=== PATIENT | male | born 1985 | race Caucasian/White ===

== ENCOUNTER 2021-02-12 09:56 | Emergency (ER) | payer OTHER, SELFPAY ==
--- NOTE | ~2021-02-12 | XR_ITS ---
EXAMINATION: XR_CERV2-3V_CR DATE: 02/12/2021 11:36 INDICATION: Chronic neck pain. TECHNIQUE: 4 views of cervical spine were obtained. COMPARISON: None. FINDINGS: Bone alignment is normal. Vertebral body heights are normal. There is mildly decreased disc height at C5-C6 and C6-C7. The facet joints are unremarkable. There is mild central canal stenosis a t C5-C6. No prevertebral soft tissue swelling. IMPRESSION: 1. Mild cervical spondylosis. Reviewed, dictated and finalized at location A.
[2021-02-12 10:03] VITALS: BP 117/78; PULSE 71; RESP 18; TEMP 36.2; O2SAT 100
[2021-02-12 10:30] VITALS: BP 109/75; PULSE 70; RESP 18; TEMP 36.7; O2SAT 100
--- NOTE | 2021-02-12 10:46 | ECG_ITS ---
Measurements Intervals [place] Rate: 64 P: 77 [place]: 136 QRS: 54 QRSD: 82 T: 60 QT: 369 QTc: 382 Interpretive Statements SINUS RHYTHM INCOMPLETE RIGHT BUNDLE BRANCH BLOCK BASELINE ARTIFACT- V3 BORDERLINE ECG Electronically Signed On 02-12-2021 14:32:47 CDT by Tray Urias D.O.
--- NOTE | 2021-02-12 11:23 | PC.NURSE ---
Pt refusing IV, made aware.
--- NOTE | 2021-02-12 11:24 | ED.GENADULT ---
HPI - General Adult General Chief complaint: Neck Pain/Injury Stated complaint: neck pain Time Seen by Provider: 02/12/21 10:54 History of Present Illness HPI narrative: Patient is a 35-year-old male who presents ER with neck pain. Reports he has been having neck pain for 4 years since he injured it while lifting 150 pound item while at work. Reports 4 years ago he felt a crack in his neck. Since then he has been having intermittent discomfort. Feels like he gets spasms in his upper back and his neck. He will then get some edema in his hands and feet and occasional burning down his legs. Reports this usually goes away with anti-inflammatories. He felt like it was worse last night so he came in to be seen. He was seen by his PCP 1 week ago who ordered outpatient x-rays and plans on ordering an outpatient MRI. He has not received the x-ray yet. He has been taking ibuprofen 400 mg every 8 hours without relief of pain. No saddle anesthesia or difficulty with urination/defecation. He is able to ambulate and maintain strength just feels very sensitive over his skin diffusely. No recent trauma. Denies fevers or chills or sweats. No new rash. Related Data Home Medications Medication Instructions Recorded Confirmed levothyroxine 50 mcg 02/12/21 Allergies Allergy/AdvReac Type Severity Reaction Status Date / Time No Known Allergies Allergy Mild Unverified 02/12/21 10:53 Review of Systems Review of Systems: All systems reviewed & are unremarkable except as noted in HPI and below Constitutional: Constitutional: Denies chills, Denies fever(s) and Denies weakness Musculoskeletal: Musculoskeletal: Reports back pain, Reports myalgias, Denies arthralgias, Denies joint swelling and Reports muscle cramps Comments: Extremity edema hands and feet. Neurologic: Denies headache(s), Denies focal weakness and Denies numbness Comments: Paresthesias of the thighs. [facility] Past Medical History Medical History (Updated 02/12/21 @ 12:09 by Deshaun Weiss MD) Kidney stones Surgical History Surgical History (Updated 02/12/21 @ 11:28 by Deshaun Weiss MD) No history of previous surgery Social History Social History (Updated 02/12/21 @ 11:28 by Deshaun Weiss MD) Tobacco type: e-cigarettes/vaping Gender identity (if verbalized by the patient): Male Exam Narrative: Exam Narrative: GENERAL: Well-appearing, well-nourished, and in no acute distress. HEAD: Normocephalic, atraumatic. ENT: Nares clear, no rhinorrhea or epistaxis. Mucous membranes moist. NECK: Supple. Paraspinal muscular tenderness in the C5-T2 region bilaterally. Mild midline discomfort. No swelling.Moves heal left and right but will not look up. CHEST: Clear to auscultation. No respiratory distress. HEART: Regular rate and rhythm. Normal peripheral pulses. EXTREMITIES: Normal range of motion. Able to ambulate and move arms w/o issue. SKIN: Warm, dry, no rash. NEURO: Alert and oriented x3. Sensation intact in the extemities (soft touch). Reports increased sensitivity to soft touch in lower extremities so sharp touch not preformed. Course Reevaluation(s) Reevaluation #1: Patient refusing IV. Will give medications IM and PO. Date: 02/12/21 Time: 11:24 Reevaluation #2: Patient and significant other frustrated that they are not receiving an MRI through the ER. Discussed that there is not seem to be an indication for emergency MRI and that it is not typically offered through our hospital. Cauda equina is not suspected nor is spinal epidural abscess given unremarkable lab work and lack of infectious symptoms. Patient seems to have significant chronicity with waxing waning symptoms related to his neck discomfort. Discussed I do feel patient can safely obtain outpatient MRI of the cervical spine through his primary care doctor who is been planning on obtaining one for him now that there is been an x-ray performed. I have educated on the results of the x-ray
[2021-02-12 11:27] LABS: Basophils Percent Auto 0.6 % (0.2-1.2); Eosinophils Absolute Auto 0.2 K/mm3 (0-0.3); Eosinophils Percent Auto 2.9 % (0-4.4); Immature Granulocyte Absolute 0.02 K/mm3 (0.00-0.031); Immature Granulocyte Percent A 0.3 % (0-0.5); Lymphocytes Absolute Auto 2.55 K/mm3 (0.9-3.2); Lymphocytes Percent Auto 40.7 % (18.3-44.2); Mean Corpuscular HGB Conc 35.7 g/dl (32-36); Mean Corpuscular Hemoglobin 32.6 pg (26-34); Mean Corpuscular Volume 91.3 fl (80-100); Mean Platelet Volume 9.3 fl (7.4-10.4); Monocytes Absolute Auto 0.6 K/mm3 (0.1-0.6); Monocytes Percent Auto 9.4 % (2.6-8.5); Neutrophils Absolute Auto 2.9 K/mm3 (1.3-6.7); Neutrophils Percent Auto 46.1 % (45.5-73.1); Platelet Count Result 379 k/mm3 (150-375); Red Cell Distribution Width 13.1 % (11.5-14.5); White Blood Count 6.3 K/mm3 (4.5-10.0)
[2021-02-12 11:39] LABS: Anion Gap 5 mmol/L (8-16); Blood Urea Nitrogen 14 mg/dL (9-20); CRP < 0.5 mg/dL (<1.0); Carbon Dioxide 27 mmol/L (22-30); Chloride 108 mmol/L (98-107); Estimated CRCL calculation 89 ml/min; Estimated Glomerular Filt Rate > 60; Glucose 94 mg/dL (75-110); Potassium 4.2 mmol/L (3.4-5.0); Sodium 140 mmol/L (137-145)
--- NOTE | 2021-02-12 11:40 | PC.NURSE ---
Pt refusing all pain medications.
[2021-02-12 12:02] LABS: Erythrocyte Sedimentation Rate 15 mm/hr (0-20)
== END 2021-02-12 12:25 | disposition home or self-care (01) ==
PROVIDERS: Emergency Provider Emergency Medicine; PCP Physician Assistant
DX: M54.12 Radiculopathy, cervical region (principal); M62.830 Muscle spasm of back; M48.00 Spinal stenosis, site unspecified; Z87.442 Personal history of urinary calculi
CPT/HCPCS: 36415; 72040; 80048; 85025; 85652; 86140; 93005; 99283

== ENCOUNTER 2021-02-22 15:52 | Outpatient (CLI) | payer OTHER, SELFPAY ==
--- NOTE | ~2021-02-22 | MR_ITS ---
EXAMINATION: MR brain/brain stem wo/w con DATE: 02/22/2021 17:10 CDT INDICATION: Multiple sclerosis TECHNIQUE: Magnetic resonance imaging (MRI) of the brain and brainstem was performed 15 cc MultiHance intravenous contrast. Sequences included sagittal and axial T1-weighted SE, axial diffusion-weighted FS SE, axial T2*-weighted GRE, axial T2-weighted FLAIR Propeller, and axial T2-weighted Propeller. A pparent diffusion coefficient (ADC) maps were created. COMPARISON: CT dated 01/26/2019 FINDINGS: The brain volume and ventricular system are within normal limits. The brain parenchymal si gnal intensity pattern and abdullahi/white matter is normal and there is no evidence of hemorrhage, space occupying masses or infarctions. The flow signal voids of the major arterial structures about the [place] of [place] and within the randy r dural venous sinuses appear grossly unremarkable and patent. The seventh and eighth cranial nerve complexes are normal. The mid sagittal image demonstrates a normal craniovertebral junction and lidia us callosum. The paranasal sinuses are grossly unremarkable. No abnormal contrast enhancement was appreciated. IMPRESSION: 1: NORMAL MRI OF THE BRAIN WITH AND WITHOUT CONTRAST. Reviewed, dictated and finalized at location A.
== END 2021-02-22 15:53 | disposition home or self-care (01) ==
PROVIDERS: PCP Physician Assistant; Visit Provider Physician Assistant
DX: G35 Multiple sclerosis (principal)
CPT/HCPCS: 70553; A9577

== ENCOUNTER 2021-03-20 14:40 | Outpatient (CLI) | payer OTHER, SELFPAY ==
--- NOTE | ~2021-03-20 | MR_ITS ---
EXAMINATION: MR cervical spine wo/w con DATE: 03/20/2021 16:07 INDICATION: Neck pain. TECHNIQUE: Magnetic resonance imaging (MRI) of the cervical spine was performed without intravenous c ontrast. Sequences included sagittal T2-weighted FSE, sagittal STIR FSE, sagittal T1-weighted FSE, ax ial MERGE, and axial T2-weighted FSE. COMPARISON: Cervical spine radiographs 02/12/2021 FINDINGS: Bone alignment is normal. Vertebral body heights are normal. There is mildly decreased disc height at C5-C6. The spinal cord signal intensity is normal. The following disc levels are specifica lly discussed: C2-C3: The disc does not extend beyond the endplate margin. There is no uncovertebral joint osteoarth ritis. There is mild left facet joint osteoarthritis. There is no neural foraminal stenosis. There is no central canal stenosis. C3-C4: The disc does not extend beyond the endplate margin. There is no uncovertebral joint osteoarth ritis. There is no facet joint osteoarthritis. There is no neural foraminal stenosis. There is no baudilio tral canal stenosis. C4-C5: The disc does not extend beyond the endplate margin. There is no uncovertebral joint osteoarth ritis. There is no facet joint osteoarthritis. There is no neural foraminal stenosis. There is no baudilio tral canal stenosis. C5-C6: The disc does not extend beyond the endplate margin. There is mild left uncovertebral joint os teoarthritis. There is mild left facet joint osteoarthritis. There is mild left neural foraminal sten osis. There is no central canal stenosis. C6-C7: The disc does not extend beyond the endplate margin. There is no uncovertebral joint osteoarth ritis. There is mild bilateral facet joint osteoarthritis. There is no neural foraminal stenosis. The re is no central canal stenosis. C7-T1: The disc does not extend beyond the endplate margin. There is no uncovertebral joint osteoarth ritis. There is mild bilateral facet joint osteoarthritis. There is no neural foraminal stenosis. The re is no central canal stenosis. IMPRESSION: 1. Mild cervical spondylosis. Reviewed, dictated and finalized at location A.
[2021-03-20 15:32] LABS: Estimated Glomerular Filt Rate > 60
== END 2021-03-20 14:41 | disposition home or self-care (01) ==
LOC: ANHIMG 14:41
PROVIDERS: PCP Physician Assistant; Visit Provider Physician Assistant
DX: M48.03 Spinal stenosis, cervicothoracic region (principal); M47.813 Spondylosis without myelopathy or radiculopathy, cervicothoracic region
CPT/HCPCS: 72156; A9577

== ENCOUNTER 2021-03-27 10:45 | Emergency (ER) | payer OTHER, SELFPAY ==
--- NOTE | ~2021-03-27 | XR_ITS ---
EXAMINATION: XR chest 2V DATE: 03/27/2021 11:39 INDICATION: Stabbing chest pain TECHNIQUE: PA and lateral views of the chest are obtained. COMPARISON: 08/03/2005 FINDINGS: A nodular opacity projects at the left lung base. There is no pleural effusion or pneumotho rax. The cardiomediastinal silhouette is normal. The visualized bones and soft tissues are unremarkab le. IMPRESSION: 1. Nodular opacity projecting at the left lung base which could be infectious or inflammatory or poss ibly shadow. Recommend repeat radiographs with nipple markers and/or followup radiographs in 10-14 da ys after appropriate therapy to evaluate for improvement/resolution. Reviewed, dictated and finalized at location A. IMPRESSION: 1. Nodular opacity projecting at the left lung base which could be infectious o r inflammatory or possibly shadow. Recommend repeat radiographs with nipple mar kers and/or followup radiographs in 10-14 days after appropriate therapy to maria esther luate for improvement/resolution.
--- NOTE | 2021-03-27 11:05 | ECG_ITS ---
Measurements Intervals [place] Rate: 67 P: 76 [place]: 128 QRS: 35 QRSD: 86 T: 58 QT: 385 QTc: 409 Interpretive Statements SINUS RHYTHM INCOMPLETE RIGHT BUNDLE BRANCH BLOCK BORDERLINE ECG Electronically Signed On 03-27-2021 13:58:42 CDT by Tray Urias D.O.
[2021-03-27 11:06] VITALS: BP 124/71; PULSE 68; RESP 18; TEMP 36.6; O2SAT 100
[2021-03-27 11:15] LABS: Basophils Percent Auto 0.5 % (0.2-1.2); Eosinophils Absolute Auto 0.2 K/mm3 (0-0.3); Eosinophils Percent Auto 2.3 % (0-4.4); Hematocrit 44.3 % (42.0-52.0); Hemoglobin 15.6 g/dL (14.0-18.0); Immature Granulocyte Absolute 0.03 K/mm3 (0.00-0.031); Immature Granulocyte Percent A 0.4 % (0-0.5); Lymphocytes Absolute Auto 2.79 K/mm3 (0.9-3.2); Lymphocytes Percent Auto 36.3 % (18.3-44.2); Mean Corpuscular HGB Conc 35.2 g/dl (32-36); Mean Corpuscular Hemoglobin 32.5 pg (26-34); Mean Corpuscular Volume 92.3 fl (80-100); Mean Platelet Volume 9.8 fl (7.4-10.4); Monocytes Absolute Auto 0.8 K/mm3 (0.1-0.6); Monocytes Percent Auto 9.9 % (2.6-8.5); Neutrophils Absolute Auto 3.9 K/mm3 (1.3-6.7); Neutrophils Percent Auto 50.6 % (45.5-73.1); Platelet Count Result 346 k/mm3 (150-375); Red Cell Distribution Width 12.9 % (11.5-14.5); White Blood Count 7.7 K/mm3 (4.5-10.0)
[2021-03-27 11:24] LABS: Anion Gap 7 mmol/L (8-16); Blood Urea Nitrogen 10 mg/dL (9-20); Calcium 9.4 mg/dL (8.4-10.2); Carbon Dioxide 27 mmol/L (22-30); Chloride 108 mmol/L (98-107); Estimated CRCL calculation 82 ml/min; Estimated Glomerular Filt Rate > 60; Glucose 92 mg/dL (75-110); Potassium 4.1 mmol/L (3.4-5.0); Sodium 142 mmol/L (137-145)
[2021-03-27 11:26] LABS: Prothrombin Time 13.3 Seconds (11.1-14.7)
[2021-03-27 11:27] LABS: Partial Thromboplastin Time 25.2 SECONDS (22.3-36.8)
[2021-03-27 11:36] LABS: Troponin I < 0.012 ng/mL (0.000-0.034)
--- NOTE | 2021-03-27 14:20 | PC.NURSE ---
Pt called twice to obtain vital signs and have 3 hour trop drawn. Pt did not answer
== END 2021-03-27 14:20 | disposition left against medical advice (07) ==
LOC: ANHED 15:16
PROVIDERS: Emergency Provider Emergency Medicine; PCP Physician Assistant
DX: R07.9 Chest pain, unspecified (principal)
CPT/HCPCS: 36415; 71046; 80048; 84484; 85025; 85610; 85730; 93005; 99199

== ENCOUNTER 2021-05-01 08:54 | Outpatient (CLI) | payer OTHER, SELFPAY ==
--- NOTE | 2021-05-01 11:30 | NEURO_ITS ---
Impression: # Complains of numbness and pain in upper and lower extremities. # No Carpal Tunnel Syndrome. # No ulnar neuropathy. # Normal nerve conduction study. # Normal needle/EMG exam. # Clinical correlation recommended. Nerve Conduction Studies Anti Sensory Summary Table Stim Site NR Peak (ms) P-T Amp (?V) Site1 Site2 Delta-P (ms) Dist (cm) Jacob (m/s) Left Median Anti Sensory (2-3nd Digit) Wrist 3.1 55.8 Wrist 2-3nd Digit 3.1 14.0 45 Wrist 2.9 75.0 Wrist 2-3nd Digit 3.1 14.0 45 Right Median Anti Sensory (2-3nd Digit) Wrist 2.8 68.2 Wrist 2-3nd Digit 2.8 14.0 50 Wrist 2.7 62.0 Wrist 2-3nd Digit 2.8 14.0 50 Left Radial Anti Sensory (Base 1st Digit) Wrist 2.0 27.3 Wrist Base 1st Digit 2.0 0.0 Right Radial Anti Sensory (Base 1st Digit) Wrist 2.2 22.7 Wrist Base 1st Digit 2.2 0.0 Left Sup Fibular Anti Sensory (Ant Lat Mall) 14 cm 2.4 21.5 14 cm Ant Lat Mall 2.4 16.0 67 Right Sup Fibular Anti Sensory (Ant Lat Mall) 14 cm 2.7 10.3 14 cm Ant Lat Mall 2.7 16.0 59 Left Sural Anti Sensory (Lat Mall) Calf 3.4 20.5 Calf Lat Mall 3.4 16.0 47 Right Sural Anti Sensory (Lat Mall) Calf 3.6 10.0 Calf Lat Mall 3.6 16.0 44 Left Ulnar Anti Sensory (5th Digit) Wrist 2.6 55.1 Wrist 5th Digit 2.6 14.0 54 Right Ulnar Anti Sensory (5th Digit) Wrist 2.5 57.1 Wrist 5th Digit 2.5 14.0 56 Motor Summary Table Stim Site NR Onset (ms) O-P Amp (mV) Site1 Site2 Delta-0 (ms) Dist (cm) Jacob (m/s) Left Median Motor (Abd Poll Brev) Wrist 3.4 2.5 Elbow Wrist 4.3 26.0 60 Elbow 7.7 5.7 Right Median Motor (Abd Poll Brev) Wrist 3.3 3.0 Elbow Wrist 4.4 28.0 64 Elbow 7.7 2.7 Left Peroneal Motor (Vastus Med) Ankle 4.6 1.0 Popit Ankle 7.4 40.0 54 Popit 12.0 1.1 Right Peroneal Motor (Vastus Med) Ankle 4.6 0.7 Popit Ankle 7.2 35.0 49 Popit 11.8 0.9 Left Tibial Motor (Abd Zavaleta Brev) Ankle 4.6 5.3 Knee Ankle 8.4 44.0 52 Knee 13.0 5.2 Right Tibial Motor (Abd Zavaleta Brev) Ankle 5.0 12.7 Knee Ankle 7.8 42.0 54 Knee 12.8 5.0 Left Ulnar Motor (Abd Dig Minimi) Wrist 2.5 6.7 A Elbow Wrist 4.7 29.0 62 A Elbow 7.2 6.1 Right Ulnar Motor (Abd Dig Minimi) Wrist 2.4 4.1 A Elbow Wrist 4.9 29.0 59 A Elbow 7.3 3.4 F Wave Studies NR F-Lat (ms) L-R F-Lat (ms) Left Median (Mrkrs) (Abd Poll Brev) 28.83 1.42 Right Median (Mrkrs) (Abd Poll Brev) 27.41 1.42 Left Peroneal (Mrkrs) (EDB) 49.84 0.94 Right Peroneal (Mrkrs) (EDB) 50.78 0.94 Left Tibial (Mrkrs) (Abd Hallucis) 49.22 0.23 Right Tibial (Mrkrs) (Abd Hallucis) 48.99 0.23 Left Ulnar (Mrkrs) (Abd Dig Min) 27.42 0.73 Right Ulnar (Mrkrs) (Abd Dig Min) 28.15 0.73 EMG Side Muscle Nerve Root Ins Act Fibs Amp Dur Recrt Comment Right 1stDorInt Ulnar C8-T1 Nml Nml Nml Nml Nml Right Ext Indicis Radial (Post Int) C7-8 Nml Nml Nml Nml Nml Right Ext Digitorum Radial (Post Int) C7-8 Nml Nml Nml Nml Nml Right BrachioRad Radial C5-6 Nml Nml Nml Nml Nml Right PronatorTeres Median C6-7 Nml Nml Nml Nml Nml Right Abd Poll Brev Median C8-T1 Nml Nml Nml Nml Nml Right AntTibialis Dp Br Fibular L4-5 Nml Nml Nml Nml Nml
== END 2021-05-01 08:55 | disposition home or self-care (01) ==
PROVIDERS: PCP Family Medicine; Visit Provider Physician Assistant
DX: R20.0 Anesthesia of skin (principal)
CPT/HCPCS: 95886; 95913

== ENCOUNTER 2021-08-11 15:49 | Emergency (ER) | payer OTHER, MEDICAID, SELFPAY ==
--- NOTE | ~2021-08-11 | XR_ITS ---
EXAMINATION: XR chest 2V DATE: 08/11/2021 16:14 INDICATION: Chest pain. Bradycardia and tunnel vision. TECHNIQUE: PA and lateral views of the chest were obtained. COMPARISON: Chest radiograph dated 03/27/2021 FINDINGS: The lungs are now clear with no focal airspace opacities, pulmonary edema, pleural effusion or pneumo thorax. The cardiomediastinal silhouette is normal. Visualized bones and soft tissues are unremarkabl e. IMPRESSION: 1. No acute cardiopulmonary disease. Reviewed, dictated and finalized at location A.
[2021-08-11 15:50] VITALS: BP 118/67; PULSE 70; RESP 16; TEMP 36.8; O2SAT 100
--- NOTE | 2021-08-11 15:54 | ECG_ITS ---
Measurements Intervals [place] Rate: 61 P: 74 [place]: 133 QRS: 53 QRSD: 88 T: 63 QT: 393 QTc: 399 Interpretive Statements SINUS RHYTHM INCOMPLETE RIGHT BUNDLE BRANCH BLOCK DELAYED PRECORDIAL R/S TRANSITION BORDERLINE ECG Electronically Signed On 08-11-2021 18:22:37 CDT by Tray Urias D.O.
[2021-08-11 16:11] LABS: Basophils Absolute Auto 0.1 K/mm3 (0.0-0.1); Basophils Percent Auto 0.8 % (0.2-1.2); Eosinophils Absolute Auto 0.2 K/mm3 (0-0.3); Eosinophils Percent Auto 2.9 % (0-4.4); Hematocrit 43.5 % (42.0-52.0); Hemoglobin 15.2 g/dL (14.0-18.0); Immature Granulocyte Absolute 0.01 K/mm3 (0.00-0.031); Immature Granulocyte Percent A 0.2 % (0-0.5); Lymphocytes Absolute Auto 2.41 K/mm3 (0.9-3.2); Lymphocytes Percent Auto 38.8 % (18.3-44.2); Mean Corpuscular HGB Conc 34.9 g/dl (32-36); Mean Corpuscular Hemoglobin 32.3 pg (26-34); Mean Corpuscular Volume 92.4 fl (80-100); Mean Platelet Volume 9.5 fl (7.4-10.4); Monocytes Absolute Auto 0.7 K/mm3 (0.1-0.6); Monocytes Percent Auto 10.6 % (2.6-8.5); Neutrophils Absolute Auto 2.9 K/mm3 (1.3-6.7); Neutrophils Percent Auto 46.7 % (45.5-73.1); Platelet Count Result 396 k/mm3 (150-375); Red Blood Count 4.71 M/mm3 (4.6-6.20); Red Cell Distribution Width 12.8 % (11.5-14.5); White Blood Count 6.2 K/mm3 (4.5-10.0)
[2021-08-11 16:20] LABS: Prothrombin Time 12.8 Seconds (11.1-14.7)
[2021-08-11 16:21] LABS: Anion Gap 8 mmol/L (8-16); Blood Urea Nitrogen 13 mg/dL (9-20); Calcium 9.7 mg/dL (8.4-10.2); Carbon Dioxide 28 mmol/L (22-30); Chloride 105 mmol/L (98-107); Estimated CRCL calculation 89 ml/min; Estimated Glomerular Filt Rate > 60; Glucose 81 mg/dL (65-110); Partial Thromboplastin Time 26.7 SECONDS (22.3-36.8); Potassium 3.9 mmol/L (3.4-5.0); Sodium 141 mmol/L (137-145)
[2021-08-11 16:33] LABS: Troponin I < 0.012 ng/mL (0.000-0.034)
[2021-08-11] MEDS: ASPIRIN 81 MG CHEWABLE TABLET 324 MG PO (16:55)
--- NOTE | 2021-08-11 18:30 | ED.ARRPALP ---
HPI - Arrhythmia/Palpitations General Chief Complaint: Arrhythmia/Palpitations Stated Complaint: slow heartrate, near syncopal Time Seen by Provider: 08/11/21 16:19 Source: patient Mode of arrival: ambulatory Limitations: no limitations History of Present Illness HPI narrative: 35 year old male with history of hypothyroidism states he was sitting on the couch this morning and states he developed tunnel vision while watching TV, patient felt like he was going to pass out. Patient checked his pulse at home and stated it was very low. No previous history of same. No new medications or dose changes. No headache no focal weakness, no rever, no slurred speech. Does complain of substernal chest pain radiating to L arm at the time, no pain now. Patient was able to drive himself to ED after event. No other complaints, no syncope, no LOC, no abdominal pain, no vomiting, no flank pain, no dysuria. No leg swelling, no recent surgeries or travel. Related Data Home Medications Medication Instructions Recorded Confirmed levothyroxine 50 mcg 02/12/21 Allergies Allergy/AdvReac Type Severity Reaction Status Date / Time No Known Allergies Allergy Mild Unverified 02/12/21 10:53 Review of Systems Review of Systems: ROS: General: denies fever, denies recent weight loss, denies chills HENT: no changes in vision, no changes in hearing, no difficulty swallowing Respiratory: no shortness of breath, no wheezing, no cough. CV: positive for chest pain, no palpitations no lower extremity edema GI: denies abdominal pain, nausea, vomiting and melena : denies flank pain, dysuria, and urinary retention MSK: Denies myalgias, joint pain and trauma SKIN: denies rashes, wound, itching NEURO: denies headache, focal weakness, slurred speech, positive for brief episode of pre-syncope, tunnel vision PSYCHIATRIC: denies recent anxiety and depression, no recent changes in mood [facility] Past Medical History Medical History (Updated 08/12/21 @ 00:01 by Juany Johnson) Kidney stones Surgical History Surgical History (Updated 02/12/21 @ 11:28 by Deshaun Weiss MD) No history of previous surgery Social History Social History (Updated 02/12/21 @ 11:28 by Deshaun Weiss MD) Tobacco type: e-cigarettes/vaping Gender identity (if verbalized by the patient): Male Exam Const: Other: afebrile, answering all questions appropriately, NAD HENMT: Mouth: Yes moist mucous membranes Throat: posterior oropharynx normal and uvula midline Eyes: Conjunctivae: conjunctivae normal Pupils: Equal, round and reactive pupils present EOM: EOMs intact bilaterally Neck: Neck: no lymphadenopathy and no meningeal signs Chest: Chest palpation & inspection: normal inspection of the chest Other: eqaul chest rise bilaterally, no crepitus Resp: Effort & Inspection: normal respiratory effort Auscultation: clear to auscultation bilaterally Other: unlabored, Cardio: Rate: regular rate Rhythm: regular rhythm Other: no lower extremity edema B, calf size equal B Skin: General skin exam: normal color Rashes: no rashes Wounds: no wounds Neuro: General: patient oriented x3, moves all extremities, no meningeal signs, no focal motor deficits and CN's II-XI intact bilaterally Speech: normal speech Gait exam (Neuro): Normal gait present Extrem: General: normal to inspection and no clubbing, cyanosis or edema Psych: Appearance: well kempt Affect: normal affect Thought content: Yes Normal thought content present Course Vital Signs Vital signs: Vital Signs Temperature 36.8 C 08/11/21 15:50 Pulse Rate 70 08/11/21 15:50 Respiratory Rate 16 08/11/21 15:50 Blood Pressure 118/67 08/11/21 15:50 Pulse Oximetry 100 08/11/21 15:50 Temperature 36.8 C 08/11/21 15:50 Pulse Rate 70 08/11/21 15:50 Respiratory Rate 16 08/11/21 15:50 Blood Pressure 118/67 08/11/21 15:50 Pulse Oximetry 100 08/11/21 15:50 MDM - Arrhythmia
== END 2021-08-11 18:40 | disposition home or self-care (01) ==
PROVIDERS: Emergency Provider Emergency Medicine; PCP Family Medicine
DX: R00.1 Bradycardia, unspecified (principal); R00.2 Palpitations; E03.9 Hypothyroidism, unspecified; Z87.442 Personal history of urinary calculi; F17.290 Nicotine dependence, other tobacco product, uncomplicated; I45.10 Unspecified right bundle-branch block
CPT/HCPCS: 36415; 71046; 80048; 84443; 84484; 85025; 85610; 85730; 93005; 99284; A9270

== ENCOUNTER 2021-08-14 11:20 | Outpatient (CLI) | payer OTHER, MEDICAID, SELFPAY ==
--- NOTE | ~2021-08-14 | XR_ITS ---
XR lumbar spine 2-3V DATE: 08/14/2021 11:49 INDICATION: Low back pain radiating to both hips TECHNIQUE: AP, lateral, coned lateral lumbosacral views COMPARISON: None FINDINGS: Normal alignment of the lumbar spine. No fracture or bone destruction or spondylolisthesis. The lumbar pedicles are intact. The sacroiliac joints are normal. IMPRESSION: Negative Reviewed, dictated and finalized at location B. IMPRESSION: Negative
== END 2021-08-14 11:21 | disposition home or self-care (01) ==
LOC: ANHIMG 11:30
PROVIDERS: PCP Family Medicine
DX: M54.50 Low back pain, unspecified (principal)
CPT/HCPCS: 72100

== ENCOUNTER 2025-07-15 15:13 | Emergency (ER) | payer OTHER, SELFPAY ==
--- OUTSIDE RECORDS SUMMARY | 2025-07-15 15:15 | XMS_ITS | Clinical Summary ---
Author Organization [facility] Address [address] 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 This disclosure is being madepursuant to the Care Everywhere program and may not contain all information available regarding this patient. Last updated 18.[facility] Allergies No known active allergies Medications * Be aware that medications may not be up to date on this document. Alwaysverify current medications with the patient. cyclobenzaprine (FLEXERIL) 10 MG tablet Take 10 mg by mouth 3 times daily as needed FOR MUSCLE SPASM 1 Active diclofenac sodium EC (VOLTAREN) 75 MG tablet Take 75 mg by mouth 2 times daily 1 Active levothyroxine (SYNTHROID) 25 MCG tablet TK 1 T PO QD 0 Active levothyroxine (SYNTHROID) 100 MCG tablet Take 100 mcg by mouth once daily 1 Active levothyroxine (SYNTHROID) 50 MCG tablet Take 50 mcg by mouth once daily 0 Active methylPREDNISol one (MEDROL DOSEPAK) 4 MG tablet FOLLOW PACKAGE DIRECTIONS 1 Active hydroxychloroqu ine (PLAQUENIL) 200 MG tablet Take 2 (two) tablets by mouth once daily 60 tablet 3 1 Active Family History Medical History Relation Name Comments Asthma Brother Diabetes; unknown type Mother Relation Name Status Comments Brother Mother Social History Tobacco Use Types Packs/Day Years Used Date Smoking Tobacco: Former Smokeless Tobacco: Never Alcohol Use Standard Drinks/Week Comments Not Currently 0 (1 standard drink = 0.6 oz pur e alcohol) Sex and Gender Information Value Date Recorded Sex Assigned at Not on file Legal Sex Male 8:21 AM CDT Gender Identity Not on file Sexual Orientation Not on file Last Filed Vital Signs Vital Sign Reading Time Taken Comments Blood Pressure 120/80 07/29/2021 2:22 PM CDT Pulse 66 07/29/2021 2:22 PM CDT Temperature 36.7 C (98 F) 07/29/2021 2:22 PM CDT Respiratory Rate - - Oxygen Saturation 96% 07/29/2021 2:22 PM CDT Inhaled Oxygen Concentration - - Weight 80.1 kg (176 lb 9.6 oz) 07/29/2021 2:22 P M CDT Height 175.3 cm (5' 9) 07/29/2021 2:22 PM CDT Body Mass Index 26.08 07/29/2021 2:22 PM CDT Plan of Treatment Health Maintenance Due Date Last Done Comments LIPID TESTING 1983 HIV SCREENING 1998 HEPATITIS C SCREENING 11/03/2001 DTAP/TDAP/TD VACCINES (1 - Tdap) 2002 HEPATITIS B VACCINE (1 of 3 - 19+ 3-dose series) 2002 HPV VACCINE (1 - 3-dose SCDM series) 2010 DEPRESSION SCREENING 11/02/2024 COVID-19 VACCINE (1 - 2023-2 5 season) 2025 INFLUENZA VACCINE (#1) 2025 ZOSTER VACCINE (1 of 2) 2033 HIB VACCINE Aged Out No longer eligi ble based on patient's age to complete this topic MENINGOCOCCAL (Group B) VACC INE SHARED DECISION-MAKING Aged Out No longer eligibl e based on patient's age to complete this topic MENINGOCOCCAL GROUPS A/C/Y/W VACCINE Aged Out No longer eligible b ased on patient's age to complete this topic PNEUMOCOCCAL VACCINE Aged Out No long er eligible based on patient's age to complete this topic Insurance [employer]
--- OUTSIDE RECORDS SUMMARY | 2025-07-15 15:15 | XMS_ITS | Clinical Summary ---
Author Organization [facility] Address [address] [place] [address] Care Team Providers Care Special Delivery Worker Name Role Phone Georgie Joya Primary Care Provider + No, Physician Unavailable Allergies No known active allergies Medications levothyroxine (SYNTHROID) 50 mcg tablet 08/28/2020 Active sertraline (ZOLOFT) 50 mg tablet Take by mouth 11/02/1969 Active Active Problems Problem Noted Date Diagnosed Date Numbness and tingling of upp er and lower extremities of both sides 02/27/2021 Neck pain, bilateral 02/27/2021 Chronic left shoulder pain 02/27/2021 Thyroid disease 08/30/2020 Surgical History Surgery Date Site/Laterality Comments KIDNEY STONE SURGERY 11/02/2016 - 11/01/2017 Medical History Medical History Date Comments Thyroid disorder Social History Tobacco Use Types Packs/Day Years Used Date Smoking Tobacco: Every Day E-cigarettes Smokeless Tobacco: Never Personal Safety Answer Date Recorded Getting School Help Needed Not on file 12/27 Sex and Gender Information Value Date Recorded Sex Assigned at Not on file Legal 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 Gender Identity Not on file Sexual Orientation Not on file Obstetrics History Last Filed Vital Signs Vital Sign Reading Time Taken Comments Blood Pressure 101/63 10/07/2021 12:11 PM BILINGUAL INTERPRETER Pulse 62 10/07/2021 12:11 PM BILINGUAL INTERPRETER Temperature 36.8 C (98.3 F) 10/07/2021 12:11 PM BILINGUAL INTERPRETER Respiratory Rate 18 10/07/2021 12:11 PM BILINGUAL INTERPRETER Oxygen Saturation 98% 03/11/2021 3:30 PM CDT Inhaled Oxygen Concentration - - Weight 78 kg (172 lb) 10/07/2021 12:11 PM BILINGUAL INTERPRETER Height 175.3 cm (5' 9) 10/07/2021 12:11 PM BILINGUAL INTERPRETER Body Mass Index 25.4 10/07/2021 12:11 PM BILINGUAL INTERPRETER Plan of Treatment Not on file Insurance [employer] [facility] [employer] [facility] P[facility] Care Teams Special Delivery Worker Relationship Specialty Start Date End Date Georgie Joya PA PCP - General 07/31/20 No, Physician 07/31/20
--- OUTSIDE RECORDS SUMMARY | 2025-07-15 15:15 | XMS_ITS | Encounter Summary ---
Author Organization [facility] Address [address] [place] [id number] Care Team Providers Care Pediatric Dentist Name Role Phone Georgie Joya PA-C Primary Care Provider [phone] Encounter Details Date Type Department Care Team (Late st Contact Info) Description 04/05/2021 Abstract [facility] [id number] Destini Duncan MA Social History Tobacco Use Types Packs/Day Years Used Date Smoking Tobacco: Never Assessed Sex and Gender Information Value Date Recorded Sex Assigned at Not on file Legal Sex Male 9:59 AM CDT Gender Identity Not on file Sexual Orientation Not on file documented as of this encounter Plan of Treatment Not on file documented as of this encounter Procedures Procedure Name Priority Date/Time Associated Diagnosis Comments PROTIME (OUTSIDE LAB) Routine 03/27/2021 PROTIME (OUTSIDE LAB) Routine 03/27/2021 CBC (OUTSIDE LAB) Routine 03/27/2021 BASIC METABOLIC PANEL Routine 03/27/2021 documented in this encounter Results * PROTIME (OUTSIDE LAB) (03/27/2021) PROTIME 13.3 INR 1.0 03/27/2021 [facility] Abstract LAB-OUTSIDE/ABSTRACTED Final Result * PROTIME (OUTSIDE LAB) (03/27/2021) PROTIME 13.3 INR 1.0 03/27/2021 [facility] Abstract LAB-OUTSIDE/ABSTRACTED Final Result * BASIC METABOLIC PANEL (03/27/2021) SODIUM S/P/B 142 POTASSIUM S/P/B 4.1 CO2 27 CHLORIDE S/P/B 108 GLUCOSE 92 mg/dL CALCIUM S/P/B 9.4 BUN 10 CREATININE S/P/B 1.10 0.7 - 1.3 EGFR NON-AFR. AMER. >60 <=90 03/27/2021 us [facility] Abstract LABORATORY Final Result * CBC (OUTSIDE LAB) (03/27/2021) Pathologist [facility] WBC 7.7 HGB 15.6 HCT 44.3 PLT 346 03/27/2021 us [facility] Abstract LAB-OUTSIDE/ABSTRACTED Final Result documented in this encounter Visit Diagnoses Not on filedocumented in this encounter Care Teams Pediatric Dentist Relationship Specialty Start Date End Date Georgie Joya PA-C [address] [place] [address] PCP - General NURSE PRACTITIONER 04/02/21 documented as of this encounter
--- OUTSIDE RECORDS SUMMARY | 2025-07-15 15:15 | XMS_ITS | Clinical Summary ---
Author Organization [facility] Address [address] [place] [address] Phone Care Team Providers Care Chief Solution Architect Name Role Phone Steven Sibley Primary Care Provider [phone] Allergies No known active allergies Medications No known medications Active Problems No known active problems Social History Tobacco Use Types Packs/Day Years Used Date Smoking Tobacco: Former Smokeless Tobacco: Never Tobacco Cessation:Counseling Given: No Alcohol Use Standard Drinks/Week Comments No 0 (1 standard drink = 0.6 oz pur e alcohol) Sex and Gender Information Value Date Recorded Sex Assigned at Not on file Legal Sex Male 8:31 PM CDT Gender Identity Not on file Sexual Orientation Not on file Last Filed Vital Signs Vital Sign Reading Time Taken Comments Blood Pressure 120/62 02/01/2019 3:59 PM CDT Pulse 65 02/01/2019 3:59 PM CDT Temperature 36.3 C (97.4 F) 02/01/2019 3:59 PM CDT Respiratory Rate 20 02/01/2019 3:59 PM CDT Oxygen Saturation 98% 02/01/2019 3:59 PM CDT Inhaled Oxygen Concentration - - Weight 81.3 kg (179 lb 4.8 oz) 02/01/2019 3:59 P M CDT Height 175.3 cm (5' 9) 02/01/2019 3:59 PM CDT Body Mass Index 26.48 02/01/2019 3:59 PM CDT Plan of Treatment Health Maintenance Due Date Last Done Comments Hepatitis C Virus (HCV) Screening 1983 TdaP Immunization 1983 Hepatitis B Immunization (1 of 3 - 19+ 3-dose series) 2002 Human Papillomavirus (HPV) Immunization (1 - 3-dose SCDM series) 2010 SARS-COV-2 Immunization ( season) 2024 Influenza Immunization (#1) 2025 Respiratory Syncytial Virus (RSV) Immunization (Adult) (1 - 1-dose 75+ series) 2058 Meningococcal Immunization (ACWY) Aged Out No longer eligible based on patient's age to complete this topic Pneumococcal Immunization Combined Aged Out No longer eligible based on patient's age to complete this topic Rotavirus Immunization Aged Out No lo nger eligible based on patient's age to complete this topic Insurance MEDICAID [place] Care Teams Chief Solution Architect Relationship Specialty Start Date End Date Steven Sibley PAC [address] [place] [address] PCP - General Physician Search Engine Marketing Specialist 08/29/19
--- OUTSIDE RECORDS SUMMARY | 2025-07-15 15:15 | XMS_ITS | Encounter Summary ---
Author Organization [facility] Address [address] [place] [address] Phone Care Team Providers Care Digital Marketing Manager Name Role Phone No, Physician Primary Care Provider [phone] Georgie Joya Primary Care Provider + No, Physician Unavailable Encounter Details Date Type Department Care Team (Late st Contact Info) Description 06/13/2020 Orders Only [facility] Scanning, Provider Social History Tobacco Use Types Packs/Day Years Used Date Smoking Tobacco: Never Assessed Sex and Gender Information Value Date Recorded Sex Assigned at Not on file Legal Sex Male 2:52 PM 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 CARE COORDINATOR Gender Identity Not on file Sexual Orientation Not on file documented as of this encounter Plan of Treatment Not on file documented as of this encounter Procedures Procedure Name Priority Date/Time Associated Diagnosis Comments SCAN - LABS 06/13/2020 documented in this encounter Results * SCAN - LABS (06/13/2020) us Provider Scanning Edited Result - Final documented in this encounter Visit Diagnoses Not on filedocumented in this encounter Care Teams Digital Marketing Manager Relationship Specialty Start Date End Date No, Physician PCP - General 05/20/17 07/30/20 Georgie Joya PA PCP - General 07/31/20 No, Physician 07/31/20 documented as of this encounter
--- OUTSIDE RECORDS SUMMARY | 2025-07-15 15:15 | XMS_ITS | Clinical Summary ---
Author Organization [facility] Address [facility] [place] [address] Care Team Providers Care Outside Cutter Name Role Phone Georgie Joya PA-C Primary Care Provider [phone] Allergies No known active allergies Medications levothyroxine 50 MCG tablet Take 50 mcg by mouth daily. 01/09/2021 Active Active Problems Problem Noted Date Diagnosed Date Numbness and tingling of upp er and lower extremities of both sides 02/27/2021 Neck pain, bilateral 02/27/2021 Chronic left shoulder pain 02/27/2021 Thyroid disease 08/30/2020 Precordial pain Family History Relation Status Comments Brother Alive Father Alive Mother Alive Social History Tobacco Use Types Packs/Day Years Used Date Smoking Tobacco: Former Smokeless Tobacco: Never Alcohol Use Standard Drinks/Week Comments Never 0 (1 standard drink = 0.6 oz pur e alcohol) Sex and Gender Information Value Date Recorded Sex Assigned at Not on file Legal Sex Male 9:59 AM CDT Gender Identity Not on file Sexual Orientation Not on file 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 Not on file Not on file Not on file Last Filed Vital Signs Vital Sign Reading Time Taken Comments Blood Pressure 110/72 04/16/2021 11:26 AM CDT Pulse 70 04/16/2021 11:26 AM CDT Temperature - - Respiratory Rate - - Oxygen Saturation 97% 04/16/2021 11:26 AM CDT Inhaled Oxygen Concentration - - Weight 79.8 kg (176 lb) 04/16/2021 11:26 AM CDT Height 175.3 cm (5' 9) 04/16/2021 11:26 AM CDT Body Mass Index 25.99 04/16/2021 11:26 AM CDT Plan of Treatment Health Maintenance Due Date Last Done Comments Annual Physical 1986 Hepatitis C 2001 DTaP, Tdap and Td Vaccines ( 1 - Tdap) 2002 Hepatitis B Vaccines (1 of 3 - 19+ 3-dose series) 2002 HPV Vaccines (1 - 3-dose SCD M series) 2010 COVID-19 Vaccine (1 - 2023-2 5 season) 2025 Meningococcal B Vaccine Aged Out No l onger eligible based on patient's age to complete this topic Meningococcal Vaccine Aged Out No nellie jeri eligible based on patient's age to complete this topic Pneumococcal Vaccine: Pediat rics (0 to 5 Years) and At-Risk Patients (6 to 49 Years) Aged Out No longer eligible b ased on patient's age to complete this topic RSV Immunizations Under 20 Months Aged Out No longer eligible based on patient's age to complete this topic Insurance [employer] MEDICAID Care Teams Outside Cutter Relationship Specialty Start Date End Date Georgie Joya PA-C [address] [place] [id number] PCP - General NURSE PRACTITIONER 04/02/21
[2025-07-15 15:20] VITALS: BP 120/75; PULSE 79; RESP 16; TEMP 36.6; O2SAT 100
--- NOTE | 2025-07-15 15:36 | ED_ITS ---
HPI - Eye Problem General Chief complaint: Eye Problems Stated complaint: eyes swollen Time Seen by Provider: 07/15/25 15:25 Source: patient and RN notes reviewed Mode of arrival: ambulatory Limitations: no limitations History of Present Illness HPI Narrative: Patient presents today complaining of pain and swelling to the left lower eyelid upon waking this morning. Denies drainage or vision changes. No injury or trauma. No recent illness. Patient took a shower this afternoon and states the swelling has improved after that. He does not wear contacts. Related Data Allergies Allergy/AdvReac Type Severity Reaction Status Date / Time No Known Allergies Allergy Mild Verified 07/15/25 15:23 [facility] Past Medical History Medical History Kidney stones Surgical History Surgical History No history of previous surgery Social History Social History Tobacco type: e-cigarettes/vaping Gender identity (if verbalized by the patient): Male Comments At time of signature, I have reviewed and agree with nursing past medical, surgical, social and family history unless otherwise noted. Please see nursing chart for further information. There is no relevant family history pertinent to the presenting complaint Exam Narrative: GENERAL: Well-appearing, well-nourished, and in no acute distress. HEAD: Normocephalic, atraumatic. EYES: EOMI. PERRL. No redness or drainage. Mild edema and erythema of the right lower eyelid. No pustule noted internally or externally. Mild tenderness to palpation. Moderately injected conjunctiva. Lashes normal. Left eye normal. ENT: Mucous membranes pink and moist. NECK: Normal AROM. CHEST: No respiratory distress. EXTREMITIES: Normal range of motion. No edema. SKIN: Warm, dry, no rash. Capillary refill normal. Normal skin turgor. NEURO: No focal deficits. Alert and oriented x3. Gait steady. PSYCH: Normal affect. No signs of depression or anxiety. Course Course Level of Care: Express Care Visit Vital Signs Vital signs: Vital Signs Temperature 97.9 F 07/15/25 15:20 Pulse Rate 79 07/15/25 15:20 Respiratory Rate 16 07/15/25 15:20 Blood Pressure 120/75 07/15/25 15:20 Pulse Oximetry 100 07/15/25 15:20 Oxygen Delivery Room Air 07/15/25 15:20 Temperature 97.9 F 07/15/25 15:20 Pulse Rate 79 07/15/25 15:20 Respiratory Rate 16 07/15/25 15:20 Blood Pressure 120/75 07/15/25 15:20 Pulse Oximetry 100 07/15/25 15:20 Oxygen Delivery Room Air 07/15/25 15:20 Reviewed MDM - Eye Problem MDM Narrative Medical decision making narrative: 39yo male patient presents today with a swollen and tender right lower eyelid present upon waking this morning. No OTC treatment prior to arrival, however, the swelling was better after showering. Upon exam, patient has a mildly swollen and tender right lower eyelid with some mild erythema. No pustule or drainage noted. Moderately injected conjunctiva as well. This may be early stye or developing conjunctivitis. Will treat with erythromycin eye ointment and recommend eyelash cleansing with baby shampoo. Patient agrees with plan. Anticipatory guidance given. Differential Diagnosis Differential diagnosis: Likely corneal abrasion, conjunctivitis and other (Stye) Critical Care Time Critical Care Time Critical Care Time: No Discharge Plan Discharge Clinical Impression: Conjunctivitis Qualifiers: Conjunctivitis type: unspecified Laterality: right Qualified Code(s): H10.9 - Unspecified conjunctivitis Patient Disposition: Home Condition: Stable Instructions: Blepharitis (ED), Conjunctivitis (ED) Additional Instructions: Please use the eye ointment as directed. Wash your eyelashes with diluted baby shampoo twice daily. Follow up with an eye doctor in 2 days if symptoms are not improving, or sooner if symptoms worsen. Patient Language: Slovak Prescriptions: New erythromycin 5 mg/gram (0.5 %) ointment 1 applic EACH EYE TID 7 Days Qty: 7 0RF Follow-up/Referrals: PHYSICIAN,WORK OVER RIG OPERATOR [Primary Care Provider, Internal Medicine] Time of Disposition: 15:36
== END 2025-07-15 15:41 | disposition home or self-care (01) ==
PROVIDERS: Emergency Provider Nurse Practitioner
DX: H10.9 Unspecified conjunctivitis (principal); F17.290 Nicotine dependence, other tobacco product, uncomplicated
CPT/HCPCS: 99213; G0463